=== PATIENT | male | born 1985 | race American Indian/Alaskan Native ===

== ENCOUNTER 2016-11-13 16:21 | Emergency (ER) | payer SELFPAY ==
--- NOTE | 2016-11-13 19:25 | Emergency Department Report ---
ED General Adult HPI - General Chief complaint: Sore Throat Stated complaint: NECK IS SWOLLING Time Seen by Provider: 11/13/16 19:03 Source: patient Mode of arrival: Ambulatory Limitations: No Limitations - History of Present Illness Initial comments: Patient here reported that he has swelling gland left side of his neck 2 days. He reports that he has a tooth in the left lower back that he has pain toothache and neck pain is 8 out of 10. Patient status examination abscess he denies any fever or chills. Denies any difficulty swallowing or drooling. Denies any sore throat. Patient is also complaining that he's been exposed to STD for 1 week and he has penile drainage. Patient is HIV positive and he said he is visiting from [place] he is on Stribild daily and says Sees ID doctor in [place]. He cannot remember his last T cell or viral load count. Denies any shortness of breath, cough or chest pain. Denies any nausea vomiting and/or abdominal pain. She reports urinary burning. Denies any testicular pain. MD Complaint: swollen gland,toothace and std Onset/Timin -: days(s) Location: face (left back tooth. Left neck) Radiation: non-radiation Severity scale (0 -10): 8 Quality: constant, other (sore) Consistency: constant Improves with: rest Worsens with: eating, movement Associated Symptoms: denies: confusion, chest pain, cough, diaphoresis, fever/ chills, headaches, loss of appetite, malaise, nausea/vomiting, rash, seizure, shortness of breath, syncope, weakness Treatments Prior to Arrival: none - Related Data Home Medications Medication Instructions Recorded Confirmed Last Taken Elvitegr/Cobicist/Emtric/Tenof 1 each PO DAILY 11/13/16 11/13/16 11/12/16 20:00 [Stribild Tablet] Previous Rx's Medication Instructions Recorded Last Taken Type Cephalexin [Keflex] 500 mg PO Q8HR #30 cap 11/13/16 Unknown Rx Ibuprofen [Motrin] 600 mg PO Q8H PRN #15 tablet 11/13/16 Unknown Rx Allergies Allergy/AdvReac Type Severity Reaction Status Date / Time No Known Allergies Allergy Unverified 11/13/16 16:53 ED Review of Systems ROS: Stated complaint: NECK IS SWOLLING Other details as noted in HPI Comment: All other systems reviewed and negative Constitutional: denies: chills, fever, malaise, weakness Eyes: denies: eye pain ENT: dental pain, other (enlarge lymph node). denies: ear pain, throat pain, congestion Respiratory: no symptoms reported Cardiovascular: denies: chest pain, palpitations, edema, syncope Gastrointestinal: denies: abdominal pain, nausea, vomiting, diarrhea Genitourinary: dysuria, discharge. denies: urgency, frequency, hematuria, testicular pain, testicular mass Musculoskeletal: denies: back pain, arthralgia, myalgia Skin: denies: rash Neurological: denies: headache, weakness, numbness, paresthesias, confusion, abnormal gait, vertigo ED Past Medical Hx - Past Medical History Previous Medical History?: Yes Hx Asthma: Yes (CHILD) Hx HIV: Yes - Surgical History Past Surgical History?: No - Family History Family history: hypertension - Social History Smoking Status: Never Smoker Substance Use Type: Alcohol - Medications Home Medications: Home Medications Medication Instructions Recorded Confirmed Last Taken Type Cephalexin [Keflex] 500 mg PO Q8HR #30 cap 11/13/16 Unknown Rx Elvitegr/Cobicist/Emtric/Tenof 1 each PO DAILY 11/13/16 11/13/16 11/12/16 20:00 History [Stribild Tablet] Ibuprofen [Motrin] 600 mg PO Q8H PRN #15 tablet 11/13/16 Unknown Rx ED Physical Exam - General Limitations: No Limitations General appearance: alert, in no apparent distress - Head Head exam: Present: atraumatic, normocephalic, normal inspection - Eye Eye exam: Present: normal appearance, PERRL, EOMI. Absent: periorbital swelling , periorbital tenderness Pupils: Present: normal accommodation - ENT ENT exam: Present: normal exam, normal orophraynx, mucous membranes moist, TM's normal bilaterally, normal external ear exam - Expanded ENT Exam Expanded Ear exam: Present: normal external inspection Mouth exam: Present: normal external inspection. Absent: drooling, trismus, muffled voice, tongue normal, tongue elevation, laceration Teeth exam: Present: dental caries, fractured tooth # (# 17), dental tenderness # (#17), other (no abscess, cellulitis or induration.). Absent: normal inspection, gingival enlargement Throat exam: Positive: normal inspection. Negative: tonsillar erythema, tonsillomegaly, tonsillar exudate, R peritonsillar mass, L peritonsillar mass - Neck Neck exam: Present: tenderness, full ROM, lymphadenopathy (left cervical adenopathy). Absent: meningismus - Expanded Neck Exam Expanded Neck exam: Present: tenderness. Absent: midline deformity, anterior neck swelling, tracheal deviation - Respiratory Respiratory exam: Present: normal lung sounds bilaterally. Absent: chest wall tenderness - Cardiovascular Cardiovascular Exam: Present: regular rate, normal rhythm, normal heart sounds - GI/Abdominal GI/Abdominal exam: Present: soft, normal bowel sounds. Absent: distended, tenderness, guarding, rebound, rigid - Extremities Exam Extremities exam: Present: normal inspection, full ROM, normal capillary refill. Absent: tenderness, pedal edema, joint swelling, calf tenderness - Back Exam Back exam: Present: normal inspection, full ROM. Absent: tenderness, CVA tenderness (R), CVA tenderness (L), muscle spasm, paraspinal tenderness, vertebral tenderness, rash noted - Neurological Exam Neurological exam: Present: alert, oriented X3, normal gait, reflexes normal. Absent: motor sensory deficit - Psychiatric Psychiatric exam: Present: normal affect, normal mood - Skin Skin exam: Present: warm, dry, intact, normal color. Absent: rash ED Course Vital Signs 11/13/16 11/13/16 11/13/16 16:55 20:34 21:44 Temperature 98.1 F 97.9 F 97.7 F Pulse Rate 71 77 73 Respiratory 17 18 18 Rate Blood Pressure 117/74 Blood Pressure 144/83 [Left] Blood Pressure 123/67 [Right] O2 Sat by Pulse 100 98 99 Oximetry - Reevaluation(s) Reevaluation #1: 11/13/16 21:24 Patient remained stable throughout ED course. Patient treated empirically for STD with Flagyl po, Rocephin IM and Zithromax by mouth. ED Medical Decision Making - Lab Data Lab Results 11/13/16 Range/Units 20:15 Urine Color Yellow (Yellow) Urine Turbidity Clear (Clear) Urine pH 5.0 (5.0-7.0) Ur Specific [place] 1.014 (1.003-1.030) Urine Protein <15 mg/dl (Negative) mg/dL Urine Glucose (UA) Neg (Negative) mg/dL Urine Ketones Neg (Negative) mg/dL Urine Blood Neg (Negative) Urine Nitrite Neg (Negative) Urine Bilirubin Neg (Negative) Urine Urobilinogen < 2.0 (<2.0) mg/dL Ur Leukocyte Esterase Neg (Negative) Urine WBC (Auto) 1.0 (0.0-6.0) /HPF Urine RBC (Auto) 1.0 (0.0-6.0) /HPF Urine Mucus Few /HPF - Medical Decision Making ED course: Patient treated in emergency room for STD concerns. Reports that he was having penile discharge. Also reported that he has tooth abscess and a broken tooth at tooth #17 with enlarge lymph nodes to left neck. I discussed with patient that his urinalysis was negative for any bacteria. Patient given a choice to be treated empirically or to have STD testing and an wait for 3 to 5 days for result. He chose to treated empirically. Patient given Rocephin 50 mg IM, Flagyl 2 g by mouth and Zithromax 1 g. Emergency room without any adverse reaction. I instructed patient that he needs to refrain from drinking all cough for the next 7 days as flagyl can cause him to have nausea if he drinks alcohol. I also discussed with him that he needs to refrain from having sexual activity and to follow-up with health department in 7-10 days for ED testing. Safe sex encourage. I discussed the patient I will treat him for lymphadenitis. Patient with prescription for Keflex and Motrin. Critical care attestation.: If time is entered above; I have spent that time in minutes in the direct care of this critically ill patient, excluding procedure time. ED Disposition Clinical Impression: Lymphadenitis, acute, Toothache, Penile discharge, Concern about STD in male without diagnosis Tooth fracture Qualifiers: Encounter type: initial encounter Fracture type: closed Qualified Code(s): S02.5XXA - Fracture of tooth (traumatic), initial encounter for closed fracture Disposition: DISCHARGED TO HOME OR SELFCARE Is pt being admited?: No Does the pt Need Aspirin: No Condition: Stable Instructions: Sexually Transmitted Diseases (ED), Safe Sex (ED), Dental Caries (ED), Lymphadenopathy (ED), Toothache (ED) Additional Instructions: Please practice safe sex Take Antibiotic as prescribed for lymphadenitis please call your infectious disease doctor leg nausea when the emergency room and was treated for lymphadenitis. .Follow up with [facility] in 7-10 days to have STD testing follow-up or if you go back to call [facility] follow-up in [place]. Please do not drink alcohol for the next 7 days as medication given for STD treatment can have a negative reaction with alcohol. Prescriptions: Cephalexin [Keflex] 500 mg PO Q8HR #30 cap Ibuprofen [Motrin] 600 mg PO Q8H PRN #15 tablet PRN Reason: Pain Referrals: [facility] [Outside] - 7-10 days [facility] [Outside] - 2-3 Days PRIMARY CARE, [Primary Care Provider] - 2-3 Days Forms: Work/School Release Form(ED)
[2016-11-13 20:39] LABS: Bilirubin,Urine NEG (Negative); Blood,Urine NEG (Negative); Ketones,Urine NEG (Negative); Leukocyte Esterase,Urine NEG (Negative); Mucus,Urine FEW /HPF; Nitrite,Urine NEG (Negative); Protein,Urine <15 mg/dL mg/dL (Negative); Urobilinogen,Urine < 2.0 mg/dL (<2.0)
[2016-11-13] MEDS ORDERED: ROCEPHIN IM ONE (21:15)
[2016-11-13] MEDS ORDERED: FLAGYL PO ONE (21:15)
[2016-11-13] MEDS ORDERED: XYLOCAINE 1% MPF 5 mL INFILTRATI ONE (21:15)
[2016-11-13] MEDS ORDERED: ZITHROMAX PO ONE (21:15)
[2016-11-13 21:45] VITALS: BP 144/83
== END 2016-11-13 21:56 | disposition home or self-care (01) ==
LOC: ED 16:21
DX: S02.5XXA Fracture of tooth (traumatic), initial encounter for closed fracture (principal); I88.9 Nonspecific lymphadenitis, unspecified; R36.9 Urethral discharge, unspecified; J45.909 Unspecified asthma, uncomplicated; Z21 Asymptomatic human immunodeficiency virus [HIV] infection status; X58.XXXA Exposure to other specified factors, initial encounter; Y93.89 Activity, other specified; Y99.8 Other external cause status; Y92.89 Other specified places as the place of occurrence of the external cause
CPT/HCPCS: 81001; 87086; 96372; 99282; J0696